=== PATIENT | female | born 1965 | race African-American/Black ===

== ENCOUNTER 2018-12-07 08:17 | Day surgery (SDC) | payer BC, OTHER ==
[2018-12-04 16:37] VITALS: BMI 20.7
[2018-12-07] MEDS ORDERED: LIDOCAINE HCL/PF 2% SDV 5ML VIAL ONE (11:44)
[2018-12-07] MEDS ORDERED: PROPOFOL 20 ML ONE (11:45)
[2018-12-07] MEDS ORDERED: MIDAZOLAM HCL 2 MG/2 ML SINGLE DOSE VIAL ONE (11:45)
[2018-12-07] MEDS ORDERED: ONDANSETRON 4 MG/2 ML VIAL IVPUSH PRN (12:32)
[2018-12-07] MEDS ORDERED: ACETAMINOPHEN 500 MG TABLET (FP) PO PRN (12:32)
[2018-12-07] MEDS ORDERED: oxyCODONE HCL 5 MG TABLET PO PRN (12:32)
--- NOTE | 2018-12-07 12:34 | OP ---
Operative Note - Note: Operative Date: 12/07/18 Pre-Operative Diagnosis: hematuria/urethral sticture Operation: cystoscopy and urethral dilation with sounds Findings: * moderate urethral stricture with 1+ trabeculation Post-Operative Diagnosis: Same as Pre-op Anesthesia: General
[2018-12-07] MEDS ORDERED: LACTATED RINGERS SOLUTION 1,000 ML IV SCH (12:45)
[2018-12-07 15:51] VITALS: BP 118/72; PULSE 50; TEMP 97.2
--- NOTE | 2019-01-13 08:56 | OP ---
DATE OF OPERATION: 12/07/2018 PREOPERATIVE DIAGNOSIS: Hematuria and urethral stricture. POSTOPERATIVE DIAGNOSIS: Hematuria and urethral stricture. PROCEDURE: Cystoscopy and urethral dilation with sounds. ATTENDING: Huy Franklin MD ANESTHESIA: General: OPERATION WENT FOLLOWS: The patient was brought in the operating room, placed in the supine position on the operating room table. Anesthesia and preoperative antibiotics were administered. The patient was then placed in the dorsal lithotomy and prepped and draped in the usual sterile manner. The patient has a history of urethral stricture which was encountered while having an office cystoscopy. Sounds were utilized and the urethra was dilated to 22-Malay. Cystoscopy was then performed. No evidence of neoplasm or stones was noted within the bladder. Then, 1+ bladder trabeculation was noted. The patient tolerated the procedure very well. HUY FRANKLIN M.D. [id number]
== END 2018-12-07 14:10 | disposition home or self-care (01) ==
LOC: JASU-SURG 08:17
PROVIDERS: ATTEND Urology
PROC: 0T7D8ZZ Dilation of Urethra, Via Natural or Artificial Opening Endoscopic (ICD-10-PCS; principal; 2018-12-07 10:00)
DX: N35.92 Unspecified urethral stricture, female (principal); R31.9 Hematuria, unspecified
CPT/HCPCS: 94760